=== PATIENT | male | born 1995 | race Two or more races ===

== ENCOUNTER 2018-04-13 14:27 | Emergency (ER) | payer OTHER, MEDICAID ==
[2018-04-13] MEDS: DEXAMETHASONE 10 MG/ML 1 ML INJ IM (16:50)
== END 2018-04-13 17:12 | disposition home or self-care (01) ==
LOC: FTE 14:27
DX: L30.9 Dermatitis, unspecified (principal); T78.49XA Other allergy, initial encounter
CPT/HCPCS: 96372; 99284-25